=== PATIENT | female | born 1950 | race Two or more races ===

== ENCOUNTER 2021-03-25 13:57 | Outpatient (CLI) | payer MEDICARE, OTHER ==
[2021-03-31] MEDS ORDERED: MAGN400O6 PO (10:55)
== END 2021-03-25 23:59 | disposition home or self-care (01) ==
LOC: LAB 13:57
PROVIDERS: ATTEND Obstetrics & Gynecology
DX: Z01.812 Encounter for preprocedural laboratory examination (principal); Z20.822 Contact with and (suspected) exposure to COVID-19
CPT/HCPCS: C9803; U0003

== ENCOUNTER 2021-03-29 07:20 | Inpatient (IN) | payer MEDICARE, OTHER ==
[~2021-03-29] VITALS: Ht 167.6 cm; Wt 83.9 kg
[~2021-03-29 07:20] MED LIST: ANESTHESIA TRAY IN PYXIS 1 EA TRAY MC ONE; BUPIVACAINE 0.25% 75 MG/30 ML VIAL ONE; LIDOCAINE 0.5%-EPI 1:200,000 50 ML VIAL ONE; LIDOCAINE 1% INJ 50 ML MDV IJ ONE
--- NOTE | 2021-03-29 07:30 | NUR ---
RN MS NOTES RECEIVED PT FROM ADMIN STAFF, PT IS AMBULATORY WITH STEADY GAIT, ASSISTED TO HER ROOM, MADE COMFORTABLE, PT A/O X 4, NO SOB, ON ROOM AIR, ROOM SET UP ORIENTATION PROVIDED, VERBALIZED UNDERSTANDING, VITAL SIGNS CHECKED AND RECORDED, KEPT WARM AND COMFORTABLE IN BED, NEW IV LINE INSERTED TO LEFT A/C, TOLERATED WELL.
[2021-03-29] MEDS ORDERED: HYDROMORPHONE INJ 2 MG/ML DISP.SYRIN ONE (07:37)
[2021-03-29] MEDS ORDERED: ROCURONIUM BROMIDE 50 MG/5 ML ONE (07:37)
[2021-03-29] MEDS ORDERED: TOPI50TA PO (07:49)
[2021-03-29] MEDS ORDERED: SERT100T PO (07:49)
[2021-03-29] MEDS ORDERED: LOSA1TAB9 PO (07:49)
[2021-03-29] MEDS ORDERED: HYDR-3980 PO (07:49)
--- NOTE | 2021-03-29 08:17 | NUR ---
RN MS NOTES SEEN BY O.R. STAFF, PROCEDURE EXPLAINED TO PT, VERBALIZED UNDERSTANDING, PROCEDURE CONSENT GIVEN, SIGNED PROCEDURE FORMS, STAT EKG AND CXR DONE STAT PER MD ORDER, PICKED UP BY O.R. STAFF VIA BED, IN STABLE CONDITION.
[2021-03-29] MEDS ORDERED: FAMOTIDINE/PF INJ 20 MG/2 ML VIAL IV ONE (08:37)
[2021-03-29] MEDS ORDERED: BUPIVACAINE 0.25% 75 MG/30 ML VIAL ONE ×2 (09:08→10:34)
[2021-03-29] MEDS ORDERED: HYDROMORPHONE 1 MG/1 ML DISP.SYRIN ONE (11:02)
[2021-03-29] MEDS ORDERED: MICONAZOLE NITRATE VAG CREAM 45 GM TUBE VG ONE (11:07)
[2021-03-29] MEDS ORDERED: IV D5 LR 1,000 ML IV PRN (11:30)
[2021-03-29] MEDS ORDERED: ONDANSETRON HCL/PF 4 MG/2 ML VIAL IVP PRN (11:30)
[2021-03-29] MEDS ORDERED: IBUPROFEN 400 MG TABLET PO PRN (11:30)
[2021-03-29 12:30] VITALS: BP 140/83
--- NOTE | 2021-03-29 12:30 | NUR ---
RN MS NOTES RECEIVED PATIENT FRM O.R, PT. AWAKE, A/O X 4 , NO SOB, ON ROOM AIR, BREATHING EVEN AND UNLABORED. PATIENT WITH IV ACCESS AT LAC WITH D5LR AT 75 CC/HR, INFUSING WELL. RECEIVED POST OP ORDERS, NOTED AND CARRIED OUT. VITAL SIGNS CHECKED AND RECORDED, KEPT WARM AND COMFORTABLE IN BED, BED IN LOWEST POSITION LOCKED. ON SAFETY PRECAUTION IN PLACE. WILL CONTINUE TO MONITOR PATIENT ACCDGLY.
[2021-03-29 12:45] VITALS: BP 137/84
[2021-03-29 13:00] VITALS: BP 115/76
[2021-03-29 13:30] VITALS: BP 116/70
[2021-03-29] MEDS ORDERED: ACETAMINOPHEN 325 MG TABLET PO PRN (13:30)
[2021-03-29] MEDS ORDERED: Z GUARD REMEDY 2 OZ OINT TP PRN (13:30)
[2021-03-29] MEDS: HYDROCODONE/APAP 5/325MG TABLET PO PRN ×2 (13:58→20:21)
[2021-03-29] MEDS ORDERED: ANCEF 1 GM/50 ML D5W IV SCH (17:00)
[2021-03-29] MEDS: MORPHINE SULFATE INJ 2 MG/ML DISP.SYRIN IV PRN ×2 (17:01→23:04)
[2021-03-29] MEDS: ANCEF 1 GM/50 ML D5W IV SCH (17:05)
[2021-03-29] MEDS: TOPIRAMATE 25 MG TABLET PO SCH (17:38)
--- NOTE | 2021-03-29 18:39 | NUR ---
RN MS CLOSING NOTES PT. AWAKE IN BED A/O X4 NO SOB, BREATHING EVEN AND UNLABORED. ON ROOM AIR,MICKI. WELL. VITAL SIGNS CHECKED AND RECORDED, KEPT PT. WARM AND COMFORTABLE IN BED, PT. WITH IV LINE AT LEFT A/C, WITH D5 LR AT 75CC/HR, TOLERATED AND INFUSING WELL. SAFETY PRECAUTION PROVIDED. BED ON LOWEST LOCKED POSITION, WITH SRX2. WILL ENDORSED PT. TO JUNIOR BOOKKEEPER NURSE FOR CONTINUITY OF CARE
--- NOTE | 2021-03-29 19:30 | NUR ---
RN OPENING NOTE RECEIVED PATIENT IN BED. A/OX3.TOLERATING ROOM AIR. RESPIRATIONS ARE EVEN AND UNLABORED. NO S/S SOB NOTED. C/O PAIN IN PERINEAL AREA. INFORMED WILL CHECK CONSULTING MANAGER VITALS AND MEDICATION LIST. IV ACCESS IN LAC#18 RUNNING D5LR@100ML/HR. VEL[place]ZQUEZ CATHETER IS PRESENT,DRAINING TO GRAVITY, URINE IS YELLOW AND CLEAR. PATIENT REQUEST MOM FOR CONSTIPATION. BED IS LOW AND LOCKED, HOB ELEVATED IN SEMI FOWLERS, SIDE RIAL SUP X2, CALL LIGHT WITHIN REACH.
[2021-03-29 20:00] VITALS: BP 111/67
[2021-03-29] MEDS: MAGNESIUM HYDROXIDE 30 ML UDC PO PRN (20:20)
[2021-03-29 22:00] VITALS: BP 111/67
[2021-03-30] MEDS: ANCEF 1 GM/50 ML D5W IV SCH ×2 (00:31→09:00)
[2021-03-30] MEDS: HYDROCODONE/APAP 5/325MG TABLET PO PRN ×4 (02:41→21:03)
[2021-03-30] MEDS: MORPHINE SULFATE INJ 2 MG/ML DISP.SYRIN IV PRN (06:07)
--- NOTE | 2021-03-30 06:45 | NUR ---
RN CLOSING NOTE PATIENT RESTING IN BED. A/OX3. REMAINS TOLERATING ROOM AIR. NO RESP DISTRESS MANAGED PAIN WITH MORPHINE AND NORCO. IV IN LAC#18 RUNNING D5LR@75ML/HR. VELÁZQUEZ CATHETER OUTPUT 1600ML. PATIENT HAD M.O.M AND PRUNE JUICE BUT NO BM. BED REMAINS LOW AND LOCKED, HOB ELEVATED IN SEMI FOWLERS, SIDE RIAL SUP X2, CALL LIGHT WITHIN REACH. WILL ENDORSE TO ONCOMING SHIFT.
[2021-03-30 06:53] LABS: BASOPHILS % (AUTO) 0.4 % (0.0-2.0); EOSINOPHILS % (AUTO) 0.8 % (0.0-6.0); HEMATOCRIT 34 % (33-45); HEMOGLOBIN 11.3 g/dL (11.5-14.8); LYMPHOCYTES # (AUTO) 1.2 K/uL (0.8-4.8); LYMPHOCYTES % (AUTO) 18.5 % (20.0-44.0); MEAN CORPUSCULAR HGB CONC 33 g/dl (31.0-36.0); MEAN CORPUSCULAR VOLUME 95 fL (82-100); MONOCYTES # (AUTO) 0.5 K/uL (0.1-1.30); MONOCYTES % (AUTO) 8.3 % (2.0-12.0); NEUTROPHILS # (AUTO) 4.6 K/uL (1.8-8.9); PLATELET COUNT (AUTO) 162 K/uL (150-450); RED BLOOD CELL COUNT(AUTO) 3.56 MIL/uL (4.0-5.2); WHITE BLOOD COUNT (AUTO) 6.4 K/uL (4.3-11.0)
[2021-03-30 07:15] LABS: CALCIUM, SERUM 9.9 mg/dL (8.5-10.1); CREATININE 0.8 mg/dL (0.6-1.3); POTASSIUM 3.1 mmol/L (3.5-5.1)
--- NOTE | 2021-03-30 07:36 | NUR ---
RN MS OPENING NOTE RECEIVED PATIENT ASLEEP IN BED. A/OX4.TOLERATING ROOM AIR. RESPIRATIONS ARE EVEN AND UNLABORED. NO S/S SOB NOTED AT THIS TIME. NO PAIN AND DISCOMFORT NOTED AT THIS TIME. IV ACCESS IN LAC#18 RUNNING D5LR@100ML/HR. VELÁZQUEZ CATHETER IS PRESENT,DRAINING TO GRAVITY, URINE IS YELLOW AND CLEAR. BED IS LOW AND LOCKED, HOB ELEVATED IN SEMI FOWLERS, SIDE RAIL UP X2, CALL LIGHT WITHIN REACH. WILL CONTINUE TO MONITOR PT. ACCDGLY
[2021-03-30] MEDS: PANTOPRAZOLE 40 MG TABLET.DR PO SCH (07:59)
[2021-03-30 08:00] VITALS: BP 107/58
[2021-03-30] MEDS: SERTRALINE HCL 50 MG TABLET PO SCH (08:23)
[2021-03-30] MEDS: TOPIRAMATE 25 MG TABLET PO SCH ×2 (08:26→17:07)
[2021-03-30] MEDS: HYDROCHLOROTHIAZIDE 25 MG TABLET PO SCH (08:27)
[2021-03-30] MEDS: LOSARTAN POTASSIUM 50 MG TABLET PO SCH (08:27)
--- NOTE | 2021-03-30 08:28 | NUR ---
RN NOTES PATIENT REFUSED TOPAMAX MEDS. ALREADY OPEN THE PILL, EXPLAINED RISK AND BENEFITS TO THE PATIENT.
--- NOTE | 2021-03-30 09:06 | NUR ---
RN NOTES CEFAZOLIN OR ANCEF IV MEDS. NOT GIVEN, PATIENT ALREADY COMPLETED 3 DOSES PER MD'S ORDER. PHARMACIST ANGELIC ALSO NOTIFIED.
--- NOTE | 2021-03-30 11:15 | NUR ---
RN NOTES DR. HICKMAN MADE HIS ROUNDS TO THE PATIENT, REMOVED VAGINAL PACKING. PATIENT MICKI. WELL. PERM MD IF PT. UNABLE TO URINATE, MAY REINSERT F.C. PATIENT WAS ABLE TO VOID 200 CC ML. WILL CONTINUE TO MONITOR PT. ACCDGLY
[2021-03-30] MEDS: POTASSIUM CHLORIDE 20 MEQ TAB.PRT.SR PO SCH ×2 (11:21→12:52)
[2021-03-30] MEDS ORDERED: MAGNESIUM CITRATE 296 ML BOTTLE PO ONE (12:30)
[2021-03-30] MEDS ORDERED: POTASSIUM CHLORIDE 20 MEQ TAB.PRT.SR PO ONE (13:00)
[2021-03-30 16:00] VITALS: BP 118/70
--- NOTE | 2021-03-30 18:52 | NUR ---
RN MS CLOSING NOTES PATIENT AWAKE IN BED. A/OX4.TOLERATING ROOM AIR. RESPIRATIONS ARE EVEN AND UNLABORED. NO S/S SOB NOTED AT THIS TIME. NO PAIN AND DISCOMFORT NOTED AT THIS TIME. IV ACCESS IN LAC#18, INTACT. PATIENT CAN VOID FREELY, NO BLADDER DISTENTION NOTED. BED IS IN LOWEST AND LOCKED POSITION, HOB ELEVATED IN SEMI FOWLERS, SIDE RAIL UP X2, CALL LIGHT WITHIN REACH. WILL CONTINUE TO MONITOR PT. AND WILL ENDORSED TO DISTRICT WILDLIFE MANAGER NURSE
--- NOTE | 2021-03-30 19:20 | NUR ---
MS/RN OPENING NOTE RECEIVED PATIENT SLEEPING IN BED. ALERT AND ORIENTED X 4. ABLE TO MAKE NEEDS KNOWN. DENIES PAIN AT THIS TIME. CONTINUES ON ROOM AIR WITH NO S/SX OF RESPIRATORY DISTRESS NOTED. IV ACCESS TO LEFT AC #18G INTACT, PATENT AND SALINE LOCKED. PATIENT IS AMBULATORY WITH STEADY GAIT. CALL LIGHT WITHIN REACH. ASPIRATION, FALL AND SAFETY PRECAUTIONS MAINTAINED. WILL CONTINUE TO MONITOR.
[2021-03-30 20:00] VITALS: BP 142/78
--- NOTE | 2021-03-30 21:10 | NUR ---
MS/RN NOTE PATIENT WITH C/O BACK PAIN 12/04. ADMINISTERED PRN NORCO PER MD ORDER.
[2021-03-30] MEDS: MAGNESIUM HYDROXIDE 30 ML UDC PO PRN (21:11)
--- NOTE | 2021-03-30 21:20 | NUR ---
MS/RN NOTE PATIENT WITH C/O CONSTIPATION. ADMINISTERED PRN MILK OF MAGNESIA WITH PENDING EFFECT. WILL CONTINUE TO MONITOR.
--- NOTE | 2021-03-31 06:20 | NUR ---
MS/RN CLOSING NOTE PATIENT CURRENTLY SLEEPING IN BED. ALERT AND ORIENTED X 4. ABLE TO MAKE NEEDS KNOWN. DENIES PAIN AT THIS TIME. CONTINUES ON ROOM AIR WITH NO S/SX OF RESPIRATORY DISTRESS NOTED. IV ACCESS TO LEFT AC #18G INTACT, PATENT AND SALINE LOCKED. PATIENT IS AMBULATORY WITH STEADY GAIT. CALL LIGHT WITHIN REACH. ASPIRATION, FALL AND SAFETY PRECAUTIONS MAINTAINED. WILL ENDORSE PLAN OF CARE TO ONCOMING SHIFT.
[2021-03-31 07:03] LABS: CALCIUM, SERUM 9.6 mg/dL (8.5-10.1); CREATININE 0.8 mg/dL (0.6-1.3); POTASSIUM 3.6 mmol/L (3.5-5.1)
--- NOTE | 2021-03-31 07:30 | NUR ---
MS RN OPENING NOTES RECEIVED PATIENT ON BED, AWAKE AND A/O X4. ON ROOM AIR TOLERATING WELL. NO SOB NOTED. NOT IN DISTRESS. WITH COMPLAINTS OF ABDOMINAL PAIN AT THE SCALE OF 7/10. NORCO TAB GIVEN PRN FOR PAIN. COMFORT MEASURES PROVIDED. WITH IV ACCESS AT LEFT AC G18, SALINE LOCKED, PATENT AND INTACT. SAFETY MEASURES IN PLACE. CALL LIGHT WITHIN REACH. BED ON LOWEST AND LOCKED POSITION, SIDE RAILS UP X2. WILL CONTINUE TO MONITOR.
[2021-03-31] MEDS: PANTOPRAZOLE 40 MG TABLET.DR PO SCH (07:57)
[2021-03-31 08:00] VITALS: BP 137/75
[2021-03-31] MEDS: TOPIRAMATE 25 MG TABLET PO SCH (08:01)
[2021-03-31] MEDS: HYDROCHLOROTHIAZIDE 25 MG TABLET PO SCH (08:02)
[2021-03-31 08:03] VITALS: BP 135/75
[2021-03-31] MEDS: SERTRALINE HCL 50 MG TABLET PO SCH (08:03)
[2021-03-31] MEDS: LOSARTAN POTASSIUM 50 MG TABLET PO SCH (08:03)
[2021-03-31] MEDS: HYDROCODONE/APAP 5/325MG TABLET PO PRN ×2 (08:06→12:17)
[2021-03-31] MEDS ORDERED: MINERAL OIL 133 ML (PYXIS) 1 EA ENEMA RC ONE (09:00)
--- NOTE | 2021-03-31 09:16 | NUR ---
MS RN NOTES PATIENT REPORTED TO HAVE NO BOWEL MOVEMENT FOR 4 DAYS. GIVEN MEDICATIONS YESTERDAY FOR BOWEL MOVEMENT MEDS AND STILL REPORTED MEDS DIDN'T WORK. DR. WORRELL ORDERED FLEET ENEMA AND WAS GIVEN. TO MONITOR PATIENT.
--- NOTE | 2021-03-31 10:30 | NUR ---
RN NOTE PATIENT WAS ABLE TO HAVE BOWEL MOVEMENT.
[2021-03-31] MEDS ORDERED: MAGN400O6 PO (10:55)
--- NOTE | 2021-03-31 14:00 | NUR ---
MS RN REFERRAL NOTES PATIENT IS FOR DISCHARGE PER DOCTOR GM'S ORDER. FOR DISCHARGE TO HOME. DISCHARGE INSTRUCTION AND EDUCATION PROVIDED TO PATIENT AND EXPLAINED MEDICATIONS AND PRESCRIPTIONS. PATIENT VERBALIZED UNDERSTANDING. DISCHARGE FORM AND BELONGINGS LIST FOR SIGNED BY PATIENT. ALL BELONGINGS LIST FORM SIGNED BY PATIENT. ALL BELONGINGS ARE ACCOUNTED FOR. NAME WRIST BAND AND IV LINE REMOVED. NO SKIN ISSUES NOTED. PATIENT WAS ACCOMPANIED TO THE LOBBY VIA WHEELCHAIR IN STABLE CONDITION. PATIENT WAS PICKED UP BY VIA PRIVATE CAR. MD AND CHARGE NURSE ARE AWARE OF THE DISCHARGE.
== END 2021-03-31 14:00 | disposition home or self-care (01) | DRG 748 ==
LOC: DS 07:20 → MED 07:22
PROVIDERS: ADMIT Nurse Practitioner Family; ATTEND Nurse Practitioner Family
PROC: 0HB9XZZ Excision of Perineum Skin, External Approach (ICD-10-PCS; principal; 2021-03-29)
PROC: 0TSC0ZZ Reposition Bladder Neck, Open Approach (ICD-10-PCS; 2021-03-29)
PROC: 0JQC0ZZ Repair Pelvic Region Subcutaneous Tissue and Fascia, Open Approach (ICD-10-PCS; 2021-03-29)
DX: N39.3 Stress incontinence (female) (male) (principal); L73.2 Hidradenitis suppurativa; N32.0 Bladder-neck obstruction; M19.90 Unspecified osteoarthritis, unspecified site; Z20.822 Contact with and (suspected) exposure to COVID-19; I10 Essential (primary) hypertension; Z79.899 Other long term (current) drug therapy; K59.00 Constipation, unspecified; N81.6 Rectocele; N81.10 Cystocele, unspecified
CPT/HCPCS: 36415; 71045-TC; 80048-TC; 83735-TC; 85025-TC; 87081-TC; 88304-TC; 88305-TC; 88311-TC; A6402; A6403; G0378; J0690; J1100; J1170; J2270; J2405; J2704; J3490; J7030; J7050; J7060